=== PATIENT | female | born 1965 | race Caucasian/White ===

== ENCOUNTER 2019-08-09 12:19 | Emergency (ER) | payer OTHER ==
[~2019-08-09] VITALS: Ht 170.2 cm; Wt 113.4 kg
[2019-08-09] MEDS ORDERED: ZOLOFT20 MG/1 ML PO (12:36)
[2019-08-09] MEDS ORDERED: NORCO 5-325 TA1 EAC1 PO (14:20)
[2019-08-09 14:33] VITALS: BP 128/68
== END 2019-08-09 14:33 | disposition home or self-care (01) ==
LOC: M.ERS 12:19
DX: M25.511 Pain in right shoulder (principal); F32.9 Major depressive disorder, single episode, unspecified; Z90.49 Acquired absence of other specified parts of digestive tract